=== PATIENT | female | born 1950 | race Caucasian/White ===

== ENCOUNTER 2016-08-17 16:47 | Observation (INO) | payer SELFPAY ==
[~2016-08-17] VITALS: Ht 157.5 cm; Wt 84.0 kg
[2016-08-17] VITALS (16 sets, daily range): BP systolic 120–181; BP diastolic 79–108; PULSE 61–102; RESP 14–18; TEMP 98.1–98.2; O2SAT 95–99
[2016-08-17] MEDS ORDERED: SODIUM CHLOR 0.9% 1000 ML INJ 1,000 ML IV ONE (16:54)
--- NOTE | 2016-08-17 17:09 | RADRPT ---
EXAM DATE/TIME: 08/17/2016 16:50 [facility] COMPARISON: CT BRAIN W/O CONTRAST, October 08, 2014, 19:15. INDICATIONS : Stroke alert. Left facial, left arm and leg numbness x 20 minutes. RADIATION DOSE: 64.11 CTDIvol (mGy) This report was called by Dr. Chicas to Dr. Mansfield at 5: 07 PM MEDICAL HISTORY : Unobtainable. SURGICAL HISTORY : Unobtainable. ENCOUNTER: Initial ACUITY: 1 day PAIN SCALE: 0/10 LOCATION: cranial TECHNIQUE: Multiple contiguous axial images were obtained of the head. Using automated exposure control and adj ustment of the mA and/or kV according to patient size, radiation dose was kept as low as reasonably a chievable to obtain optimal diagnostic quality images. DICOM format image data is available electro nically for review and comparison. FINDINGS: CEREBRUM: The ventricles are normal for age. No evidence of midline shift, mass lesion, hemorrhage or acute in farction. No extra-axial fluid collections are seen. POSTERIOR FOSSA: The cerebellum and brainstem are intact. The 4th ventricle is midline. The cerebellopontine angle i s unremarkable. EXTRACRANIAL: The visualized portion of the orbits is intact. SKULL: The calvaria is intact. No evidence of skull fracture. CONCLUSION: Normal examination for a patient of this age. No significant change has occurred. Sixto Maldonado MD on August 17, 2016 at 17:06 Board Certified Radiologist. This report was verified electronically.
--- NOTE | 2016-08-17 17:17 | PD ---
HPI Chief Complaint: Stroke Alert Time Seen by Provider: 16:54 Travel History International Travel<30 days: No Contact w/Intl Traveler<30days: No Traveled to known affect area: No History of Present Illness HPI This 65-year-old female is complaining of left-sided tingling. She says that symptoms started about half an hour ago and involved the face the arm and the leg. She says that she was outside and was quite hot when the symptoms began. She has never had symptoms like this before. She is not having headache. She has no history of stroke. Symptoms started quite abruptly. She is generally healthy. She does not take any blood thinners. She has no history of hypertension. She does not smoke. She has a history of hysterectomy [facility] Social History Tobacco Use: No Allergies-Medications (Allergen,Severity, Reaction): Coded Allergies: Cephalosporins (Verified Allergy, Unknown, 08/17/16) Reported Meds & Prescriptions Reported Meds & Active Scripts Active No Active Prescriptions or Reported Medications Review of Systems General / Constitutional: No: Fever, Chills Eyes: No: Diploplia, Blurred Vision HENT: No: Headaches, Vertigo, Lightheadedness Cardiovascular: No: Palpitations Respiratory: No: Cough, Shortness of Breath Gastrointestinal: No: Nausea, Vomiting Genitourinary: No: Urgency, Frequency Musculoskeletal: Positive: Weakness Skin: No Rash, No Itching Neurologic: Positive: Weakness Hematologic/Lymphatic: No: Easy Bruising Physical Exam Narrative GENERAL: Well-developed female SKIN: Focused skin assessment warm/dry. HEAD: Atraumatic. Normocephalic. EYES: Pupils equal and round. No scleral icterus. No injection or drainage. Extraocular movements are full. Visual tapia intact ENT: No nasal bleeding or discharge. Mucous membranes pink and moist. NECK: Trachea midline. No JVD. CARDIOVASCULAR: Regular rate and rhythm. No murmur appreciated. RESPIRATORY: No accessory muscle use. Clear to auscultation. Breath sounds equal bilaterally. GASTROINTESTINAL: Abdomen soft, non-tender, nondistended. Hepatic and splenic margins not palpable. MUSCULOSKELETAL: No obvious deformities. No clubbing. No cyanosis. No edema. NEUROLOGICAL: Awake and alert. There appears to be some mild left facial weakness. 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 Left leg she can hold up against gravity for only a few seconds. The right leg has normal strength. There is diminished sensation in the left arm and the left leg. PSYCHIATRIC: Appropriate mood and affect; insight and judgment normal Data Data Last Documented VS Vital Signs Date Time Temp Pulse Resp B/P Pulse Ox O2 Delivery O2 Flow Rate FiO2 08/17/16 17:31 75 18 164/92 97 08/17/16 17:10 98.2 Room Air Orders Cath For Specimen (08/17/16 16:54) Neuro Checks Q2HX12,Q4H (08/17/16 16:54) Nursing Bedside Swallow Assess .ONCE (08/17/16 16:54) Activity Bed Rest (08/17/16 16:54) Prothrombin Time / Inr (Pt) (08/17/16 16:54) Act Partial Throm Time (Ptt) (08/17/16 16:54) Complete Blood Count With Diff (08/17/16 16:54) Basic Metabolic Panel (Bmp) (08/17/16 16:54) Fibrinogen (08/17/16 16:54) Creatine Kinase (Cpk) (08/17/16 16:54) Troponin I (08/17/16 16:54) Ua Includes Microscopic (08/17/16 16:54) Drug Screen, Random Urine (08/17/16 16:54) Type And Screen (08/17/16 16:54) Ct Brain W/O Iv Contrast(Rout) (08/17/16 ) Electrocardiogram (08/17/16 ) Beta Hcg (Quant/Titer) (08/17/16 16:54) Consult Neurology (08/17/16 16:54) Sodium Chlor 0.9% 1000 Ml Inj (Ns 1000 M (08/17/16 16:54) Blood Glucose (08/17/16 16:54) Ecg Monitoring (08/17/16 16:54) Iv Access Insert/Monitor (08/17/16 16:54) NPO (08/17/16 16:54) Oximetry (08/17/16 16:54) Oxygen Administration (08/17/16 16:54) Resp Oxygen Mina C Titrat 1-4 L (08/17/16 16:54) Aspirin (Aspirin) (08/17/16 17:30) (Hub Use Only)Inp Phy Cons/Ref (08/17/16 ) Admit Order (Ed Use Only) (08/17/16 17:40) Place In Observation (08/17/16 ) Vital Signs (Adult) Q4H (08/17/16 17:40) 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 Operator / Telemetry .CONTINUOUS (08/17/16 17:40) Diet Heart Healthy (08/17/16 Dinner) Sodium Chlor 0.9% 1000 Ml Inj (Ns 1000 M (08/17/16 17:40) Sodium Chloride 0.9% Flush (Ns Flush) (08/17/16 17:45) Sodium Chloride 0.9% Flush (Ns Flush) (08/17/16 21:00) Ondansetron Inj (Zofran Inj) (08/17/16 17:45) Basic Metabolic Panel (Bmp) (08/18/16 06:00) Complete Blood Count With Diff (08/18/16 06:00) Heparin Inj (Heparin Inj) (08/17/16 18:00) Naloxone Inj (Narcan Inj) (08/17/16 17:45) Docusate Sodium-Senna (Stephanie-Colace) (08/17/16 21:00) Magnesium Hydroxide Liq (Milk Of Magnesi (08/17/16 17:45) Sennosides (Senokot) (08/17/16 17:45) Bisacodyl Supp (Dulcolax Supp) (08/17/16 17:45) Lactulose Liq (Lactulose Liq) (08/17/16 17:45) Labs Laboratory Tests Test 08/17/16 08/17/16 08/17/16 17:08 17:18 17:43 White Blood Count 8.9 TH/MM3 Red Blood Count 4.55 MIL/MM3 Hemoglobin 13.8 GM/DL Hematocrit 40.0 % Mean Corpuscular Volume 87.9 FL Mean Corpuscular Hemoglobin 30.3 PG Mean Corpuscular Hemoglobin 34.4 % Concent Red Cell Distribution Width 12.7 % Platelet Count 264 TH/MM3 Mean Platelet Volume 8.1 FL Neutrophils (%) (Auto) 60.6 % Lymphocytes (%) (Auto) 30.2 % Monocytes (%) (Auto) 7.2 % Eosinophils (%) (Auto) 1.4 % Basophils (%) (Auto) 0.6 % Neutrophils # (Auto) 5.4 TH/MM3 Lymphocytes # (Auto) 2.7 TH/MM3 Monocytes # (Auto) 0.6 TH/MM3 Eosinophils # (Auto) 0.1 TH/MM3 Basophils # (Auto) 0.1 TH/MM3 CBC Comment DIFF FINAL Differential Comment Prothrombin Time 9.8 SEC Prothromb Time International 0.9 RATIO Ratio Activated Partial 24.3 SEC Thromboplast Time Fibrinogen 392 mg/dL Sodium Level 140 MEQ/L Potassium Level 3.6 MEQ/L Chloride Level 106 MEQ/L Carbon Dioxide Level 26.8 MEQ/L Anion Gap 7 MEQ/L Blood Urea Nitrogen 16 MG/DL Creatinine 0.83 MG/DL Estimat Glomerular Filtration 69 ML/MIN Rate Random Glucose 93 MG/DL Calcium Level 8.7 MG/DL Total Creatine Kinase 120 U/L Troponin I LESS THAN 0.02 NG/ML Human Chorionic Gonadotropin, 2 MIU/ML Quant Blood Type A POSITIVE Antibody Screen NEGATIVE Urine Color YELLOW Urine Turbidity CLEAR Urine pH 6.0 Urine Specific Dale 1.015 Urine Protein NEG mg/dL Urine Glucose (UA) NEG mg/dL Urine Ketones NEG mg/dL Urine Occult Blood NEG Urine Nitrite NEG Urine Bilirubin NEG Urine Leukocyte Esterase SMALL Urine RBC 0-3 /hpf Urine WBC 0-2 /hpf Urine Squamous Epithelial 0-5 /hpf Cells Microscopic Urinalysis Comment CATH-CULT NOT IND Urine Opiates Screen NEG Urine Barbiturates Screen NEG Urine Amphetamines Screen NEG Urine Benzodiazepines Screen NEG Urine Cocaine Screen NEG Urine Cannabinoids Screen NEG MDM Medical Decision Making Medical Screen Exam Complete: Yes Emergency Medical Condition: Yes Medical Record Reviewed: Yes Differential Diagnosis Differential includes stroke, hemorrhage, brain tumor Narrative Course Patient was declared a stroke alert on arrival and was taken for emergent CT scan of the brain. This has been read as negative. On returning from CT scanning the patient says that she feels like she is improving considerably. Her numbness is subsiding as is her weakness. On repeat examination she does have some persistent sensory deficit. Her legs appear to be equal in strength. Her left arm is just slightly weaker than the right. Patient seems to have considerable improvement. I have discussed TPA with the patient but will not be given at this time as she appears to be improving considerably. She has been given aspirin and will be admitted. She has not yet had complete resolution so this may be residual stroke versus TIA. EKG does shows normal sinus rhythm. Patient reevaluated at 5:45 PM and says that all symptoms have resolved. Case discussed with Dr. Meehan and Dr. CONLEY Diagnosis Primary Impression: TIA (transient ischemic attack) Admitting Information Admitting Physician Requests: Admit Scripts No Active Prescriptions or Reported Meds Jass Gama MD Aug 17, 2016 17:17
[2016-08-17 17:20] LABS: AUTOMATED NEUTROPHIL # 5.4 TH/MM3 (1.8-7.7); BASOPHIL # 0.1 TH/MM3 (0-0.2); BASOPHIL % 0.6 % (0.0-2.0); EOSINOPHIL # 0.1 TH/MM3 (0-0.4); EOSINOPHIL % 1.4 % (0.0-4.0); HEMO FLAGS DIFF FINAL; LYMPH % 30.2 % (9.0-44.0); LYMPHOCYTE # 2.7 TH/MM3 (1.0-4.8); MEAN CELL VOLUME 87.9 FL (80.0-100.0); MEAN CORPUSCULAR HEMOGLOBIN 30.3 PG (27.0-34.0); MEAN CORPUSCULAR HGB CONC 34.4 % (32.0-36.0); MONO % 7.2 % (0.0-8.0); NEUT % 60.6 % (16.0-70.0); PLATELET COUNT 264 TH/MM3 (150-450); RED BLOOD COUNT 4.55 MIL/MM3 (4.00-5.30); RED CELL DISTRIBUTION WIDTH 12.7 % (11.6-17.2); WHITE BLOOD COUNT 8.9 TH/MM3 (4.0-11.0)
[2016-08-17 17:28] LABS: CHLORIDE 106 MEQ/L (98-107); POTASSIUM 3.6 MEQ/L (3.5-5.1); SODIUM (NA) 140 MEQ/L (136-145)
[2016-08-17] MEDS ORDERED: ASPIRIN 325 MG TAB PO ONE (17:30)
[2016-08-17 17:31] LABS: ANION GAP 7 MEQ/L (5-15); BICARBONATE 26.8 MEQ/L (21.0-32.0); BLOOD UREA NITROGEN 16 MG/DL (7-18)
[2016-08-17 17:34] LABS: APTT (PATIENT) 24.3 SEC (24.3-30.1); INTERNATIONAL NORMALIZED RATIO 0.9 RATIO; PROTHROMBIN TIME - PATIENT 9.8 SEC (9.8-11.6)
[2016-08-17 17:35] LABS: GLOMERULAR FILTRATION RATE 69 ML/MIN (>89)
[2016-08-17 17:38] LABS: CREATINE KINASE 120 U/L (26-192)
[2016-08-17 17:39] LABS: BETA HCG QUANT 2 MIU/ML (0-5)
[2016-08-17] MEDS ORDERED: BISACODYL 10 MG SUPP RECTAL PRN (17:45)
[2016-08-17] MEDS ORDERED: SODIUM CHLORIDE 0.9% FLUSH 10 ML FLUSH IV FLUSH PRN (17:45)
[2016-08-17] MEDS ORDERED: MAGNESIUM HYDROXIDE SUSP 30 ML CUP PO PRN (17:45)
[2016-08-17] MEDS ORDERED: ONDANSETRON HCL 4 MG/2 ML VIAL IVP PRN (17:45)
[2016-08-17] MEDS ORDERED: SENNOSIDES 8.6 MG TAB PO PRN (17:45)
[2016-08-17] MEDS ORDERED: NALOXONE HCL 0.4 MG/ML AMP IV PRN (17:45)
[2016-08-17] MEDS ORDERED: LACTULOSE SYRUP 20 GM/30 ML CUP PO PRN (17:45)
[2016-08-17] MEDS: SODIUM CHLOR 0.9% 1000 ML INJ 1,000 ML IV SCH (17:54)
[2016-08-17 17:58] LABS: BLOOD, URINE NEG (NEG); GLUCOSE,URINE NEG (NEG); KETONE, URINE NEG (NEG); NITRITE,URINE NEG (NEG)
[2016-08-17 18:06] LABS: AMPHETAMINE, URINE NEG (NEG)
[2016-08-17 18:10] LABS: RBC, URINE 0-3 /hpf (0-3); SQUAMOUS EPITHELIAL CELL URINE 0-5 /hpf (0-5); URINE COLOR YELLOW (YELLW/STRAW); WBC, URINE 0-2 /hpf (0-5)
[2016-08-17 18:11] LABS: COMMENT (UR) CATH-CULT NOT IND
[2016-08-17 18:14] LABS: BARBITURATES, URINE NEG (NEG)
[2016-08-17 18:20] LABS: COCAINE, URINE NEG (NEG)
[2016-08-17] MEDS: HEPARIN SODIUM - SQ 10,000 UNITS/ML VIAL SQ SCH (18:27)
--- NOTE | 2016-08-17 20:11 | RADRPT ---
EXAM DATE/TIME: 08/17/2016 19:38 [facility] COMPARISON: CT BRAIN W/O CONTRAST, August 17, 2016, 16:50. INDICATIONS : Repeat scan per admitting doctor. Change in mental status. Patient " seeing spots" post administratio n of heparin. RADIATION DOSE: 63.69 CTDIvol (mGy) MEDICAL HISTORY : None SURGICAL HISTORY : Hysterectomy. dental implants. breast augmentation ENCOUNTER: Subsequent ACUITY: 1 day PAIN SCALE: 0/10 LOCATION: cranial TECHNIQUE: Multiple contiguous axial images were obtained of the head. Using automated exposure control and adj ustment of the mA and/or kV according to patient size, radiation dose was kept as low as reasonably a chievable to obtain optimal diagnostic quality images. DICOM format image data is available electro nically for review and comparison. FINDINGS: CEREBRUM: The ventricles are normal for age. No evidence of midline shift, mass lesion, hemorrhage or acute in farction. No extra-axial fluid collections are seen. POSTERIOR FOSSA: The cerebellum and brainstem are intact. The 4th ventricle is midline. The cerebellopontine angle i s unremarkable. EXTRACRANIAL: The visualized portion of the orbits is intact. SKULL: The calvaria is intact. No evidence of skull fracture. Sinus disease present in the left maxillary sinus. CONCLUSION: Negative for acute process. Ash Chambers MD FACR on August 17, 2016 at 20:08 Board Certified Radiologist. This report was verified electronically.
[2016-08-17] MEDS ORDERED: LORazepam 2 MG/ML VIAL IV PUSH ONE (20:30)
[2016-08-17] MEDS: DOCUSATE SODIUM 50 MG/SENNA 8.6 MG TAB PO SCH (20:40)
[2016-08-17] MEDS ORDERED: SODIUM CHLORIDE 0.9% FLUSH 10 ML FLUSH IV FLUSH SCH (21:00)
--- NOTE | 2016-08-17 21:29 | RADRPT ---
EXAM DATE/TIME: 08/17/2016 20:52 [facility] COMPARISON: No previous studies available for comparison. INDICATIONS : Stroke alert with left sided weakness and visual disturbances. MEDICAL HISTORY : None. SURGICAL HISTORY : Hysterectomy. ENCOUNTER: Initial ACUITY: 1 day PAIN SCORE: 0/10 LOCATION: cranial Please note a normal MRA of the brain does not entirely exclude the possibility of a small aneurysm, nor the possibility of distal intracranial vessel disease. TECHNIQUE: 3D time of flight MRA was performed. Source images, multiplanar STS MIP, and 3D volume MIP reconstru ctions were reviewed. FINDINGS: There is excellent visualization of the major intracranial arteries out to the second-order branch ve ssels. There is no evidence for aneurysm, vessel truncation or stenosis, and no evidence for vascula r malformation. The left vertebral is small and diminutive. CONCLUSION: Negative for significant atherosclerotic disease. Ash Chambers MD FACR on August 17, 2016 at 21:27 Board Certified Radiologist. This report was verified electronically.
--- NOTE | 2016-08-17 21:33 | RADRPT ---
EXAM DATE/TIME: 08/17/2016 20:52 [facility] COMPARISON: No previous studies available for comparison. INDICATIONS : Stroke alert with left sided weakness and visual disturbances. MEDICAL HISTORY : None. SURGICAL HISTORY : Hysterectomy. ENCOUNTER: Initial ACUITY: 1 day PAIN SCORE: 0/10 LOCATION: Cranial TECHNIQUE: Multiplanar, multisequence MRI of the brain was performed without contrast. FINDINGS: Extensive periventricular white matter changes are evident suspicious for a demyelinating process. T here is no parenchymal hemorrhage, acute infarction or mass lesion. There are no extraaxial fluid collections a ppreciated. The posteriori fossa is unremarkable. Orbits appear normal. Minimal mucoperiosteal thickening is present in the left maxillary sinus. CONCLUSION: 1. Left maxillary sinus disease. 2. Moderate periventricular white matter changes suspicious for a demyelinating process. Ash Chambers MD FACR on August 17, 2016 at 21:28 Board Certified Radiologist. This report was verified electronically.
--- NOTE | 2016-08-17 21:37 | RADRPT ---
EXAM DATE/TIME: 08/17/2016 20:52 [facility] COMPARISON: No previous studies available for comparison. INDICATIONS : Stroke alert with left sided weakness and visual disturbances. MEDICAL HISTORY : None. SURGICAL HISTORY : Hysterectomy. ENCOUNTER: Initial ACUITY: 1 day PAIN SCORE: 0/10 LOCATION: cranial Percent stenosis is calculated using the diameter of the stenotic region over the diameter of the nor mal distal internal carotid artery. TECHNIQUE: 3D time of flight MRA of the extracranial circulation was performed using a neurovascular coil. Post processing was performed including rotating subvolume maximum intensity projections of each carotid artery, rotating full-volume maximum intensity projections of both carotid arteries, sagittal and cor onal sliding thin-slab reformations of each carotid artery, and left oblique sliding thin slab reform ation through the aortic arch to include the origin of the arch branch vessels. FINDINGS: AORTIC ARCH: There is a three vessel origin of the great vessels from the aorta. No evidence of ostial narrowing. RIGHT CAROTID: The common carotid artery is intact. The carotid bulb has a normal configuration without ulceration or narrowing. The internal carotid artery lumen is smooth without stenosis. The external carotid ar robinson is intact. LEFT CAROTID: The common carotid artery is intact. The carotid bulb has a normal configuration without ulceration or narrowing. The internal carotid artery lumen is smooth without stenosis. The external carotid ar robinson is intact. VERTEBRALS: The vertebral arteries have a symmetric diameter. No stenotic lesions are seen. CONCLUSION: Negative for hemodynamically significant stenosis. Ash Chambers MD FACR on August 17, 2016 at 21:35 Board Certified Radiologist. This report was verified electronically.
[2016-08-17] MEDS ORDERED: SODIUM CHLORIDE 0.9% FLUSH 5 ML FLUSH IV FLUSH PRN (22:15)
[2016-08-17] MEDS ORDERED: DEXTROSE 50% IN WATER 50 ML VIAL(D50) IV PUSH PRN (22:15)
[2016-08-17] MEDS ORDERED: GLUCAGON 1 MG/ML VIAL OTHER PRN (22:15)
--- NOTE | 2016-08-17 22:17 | MB ---
cc: GINI SUTTON DATE OF CONSULTATION 08/17/16 REASON FOR CONSULTATION Stroke alert HISTORY OF PRESENT ILLNESS Ms. Castillo is a very nice 65-year-old woman who had sudden onset of left-sided weakness and numbness about 4:30 this afternoon and presented to the ER and a stroke alert was called. Discussed her case with Dr. Gu. The patient was being evaluated for possible TPA administration and her CT scan of the brain was unremarkable. However, her symptoms showed marked improvement getting back to normal and, therefore, she was felt not to be a TPA candidate. She denies any prior neurologic history. No history of strokes in the past, never had diplopia, vertigo or other neurologic complaints. PAST MEDICAL HISTORY Unremarkable. MEDICATIONS None. ALLERGIES Cephalosporins. NEUROLOGIC EXAMINATION Blood pressure is 120/89, pulse 65, respiratory rate is 18. Higher cortical functions normal. Cranial nerves II-XII are normal. Motor exam - she has 5/5 strength of all groups in both upper and lower extremities. There is no drift. Fine motor skills are normal. Sensory is intact. Reflexes are symmetric. IMAGING STUDIES CT of the brain is within normal limits. MRI of the brain shows several areas in the white matter in the centrum semiovale, moderate periventricular white matter changes suspicious for a demyelinating process, no hemorrhage is identified. There is no evidence of acute stroke. MRA brain normal. MRA of the carotids within normal limits. LABORATORY DATA White count 8900, hemoglobin 13.8, hematocrit 40%, platelet count 264,000, PT 9.8, INR 0.9, APTT 24.3. Sodium 140, potassium 3.6, chloride 106, CO2 26.8, BUN 16, creatinine 0.83, GFR 69, troponin less than 0.02. Beta hCG 2. Tox screen negative. Urinalysis normal. IMPRESSION Probable TIA now resolved. Regarding the MRI findings, There is no evidence on history or exam to suggest multiple sclerosis. Would recommend following this, repeating an MRI of the brain in six months. For the present time, we will obtain an echocardiogram, monitor cardiac telemetry, rule out A. fib, start aspirin as well as check a lipid panel. The patient as noted above was not a candidate for IV t-PA due to the rapid resolution of her symptoms. MD SAMI Patel/ /10:06 PM /10:17 PM
[2016-08-18 00:25] VITALS: PULSE 68
[2016-08-18] MEDS: SODIUM CHLOR 0.9% 1000 ML INJ 1,000 ML IV SCH (03:40)
[2016-08-18 04:25] VITALS: BP 110/67; PULSE 65; RESP 18; TEMP 98.7; O2SAT 98
[2016-08-18] MEDS: HEPARIN SODIUM - SQ 10,000 UNITS/ML VIAL SQ SCH (06:00)
[2016-08-18] MEDS: INSULIN ASPART SUPPLEMENTAL SCALE SQ SCH ×3 (06:14→16:00)
[2016-08-18 06:35] LABS: AUTOMATED NEUTROPHIL # 4.3 TH/MM3 (1.8-7.7); BASOPHIL % 0.4 % (0.0-2.0); EOSINOPHIL # 0.2 TH/MM3 (0-0.4); EOSINOPHIL % 2.3 % (0.0-4.0); HEMATOCRIT 37.2 % (35.0-46.0); HEMO FLAGS DIFF FINAL; LYMPH % 29.9 % (9.0-44.0); LYMPHOCYTE # 2.1 TH/MM3 (1.0-4.8); MEAN CELL VOLUME 88.5 FL (80.0-100.0); MEAN CORPUSCULAR HEMOGLOBIN 29.9 PG (27.0-34.0); MEAN CORPUSCULAR HGB CONC 33.8 % (32.0-36.0); MONO % 7.9 % (0.0-8.0); NEUT % 59.5 % (16.0-70.0); PLATELET COUNT 224 TH/MM3 (150-450); RED CELL DISTRIBUTION WIDTH 12.7 % (11.6-17.2); WHITE BLOOD COUNT 7.2 TH/MM3 (4.0-11.0)
[2016-08-18 06:45] LABS: POTASSIUM 3.8 MEQ/L (3.5-5.1)
[2016-08-18 06:51] LABS: BICARBONATE 27.3 MEQ/L (21.0-32.0)
[2016-08-18 08:32] VITALS: BP 129/82; PULSE 66; RESP 15; TEMP 97.4; O2SAT 96
[2016-08-18] MEDS: DOCUSATE SODIUM 50 MG/SENNA 8.6 MG TAB PO SCH (08:57)
[2016-08-18] MEDS ORDERED: ASPIRIN 81 MG CHEW TAB CHEW SCH (09:00)
[2016-08-18] MEDS ORDERED: SODIUM CHLORIDE 0.9% FLUSH 5 ML FLUSH IV FLUSH SCH (09:00)
[2016-08-18 10:29] VITALS: O2SAT 96
[2016-08-18] MEDS ORDERED: holter (11:44)
[2016-08-18] MEDS ORDERED: ASPI81CH25 CHEW (11:45)
--- NOTE | 2016-08-18 12:09 | HHI.HP ---
HPI Service [facility] Primary Care Physician Allen Cope M.D. Admission Diagnosis CVA, POSS TIA Diagnoses: Travel History International Travel<30 Days: No Contact w/Intl Traveler <30 Da: No Traveled to Known Affected Are: No History of Present Illness This is a pleasant 65-year-old female who had an episode of numbness in her left upper lip but progressed into a numbness of face subsequently numbness of the left upper extremity and then left lower extremity. This happened at rest. The progression time took 3-4 minutes. She came to the emergency department at [facility] within 20 minutes. The whole thing resolved itself and one hour. She is right handed. Denies any trouble with her gait. She denied any trouble with her vision. No double vision. CT scan of the brain was negative. She had some subcutaneous heparin in the emergency department, subsequently she stated that she saw stars. Blood pressure also increased. Repeat CT scan was again negative. Subsequently she had an MRI of the brain showing questionable demyelinating process. The patient denies any history of multiple sclerosis. She denies any history of diabetes however she has a strong family history of diabetes. She was seen by the undersigned in room 8320 in the presence of her friend. She does not know oriented and would like to go home. She has already been seen by neurologist Dr. Meehan Review of Systems Other 10 systems reviewed and negative except for the above Past Family Social History Past Surgical History Hysterectomy Breast augmentation Allergies: Coded Allergies: Cephalosporins (Verified Allergy, Unknown, 08/17/16) Family History 1 brother had CABG, 1 sister had stroke, her mother at age of 62 of complications of diabetes, her father at the age of 82 of complications of some medications. Social History Current smoking, no excessive alcohol, no illicit drug use Physical Exam Vital Signs Vital Signs Date Time Temp Pulse Resp B/P Pulse Ox O2 Delivery O2 Flow Rate FiO2 08/18/16 10:29 96 21 08/18/16 08:32 97.4 66 15 129/82 96 08/18/16 04:25 98.7 65 18 110/67 98 08/18/16 00:25 68 08/17/16 23:42 95 21 08/17/16 23:39 66 08/17/16 23:13 65 18 98 08/17/16 23:05 98.1 66 16 121/79 96 7/7/17 22:30 64 18 125/80 98 Room Air 08/17/16 21:36 65 18 120/89 98 Room Air 08/17/16 20:20 64 18 144/87 98 Room Air 08/17/16 19:31 72 98 Room Air 08/17/16 19:27 72 18 159/96 98 Room Air 08/17/16 18:47 77 18 181/101 98 08/17/16 18:44 78 18 167/103 98 Room Air 08/17/16 18:29 61 18 159/94 98 Room Air 08/17/16 17:56 69 18 146/92 97 Room Air 08/17/16 17:31 75 18 164/92 97 08/17/16 17:10 98.2 73 18 170/83 95 Room Air 08/17/16 17:05 99 Room Air 08/17/16 17:05 99 Room Air 08/17/16 17:00 102 16 142/108 Physical Exam GENERAL: This is a pleasant , well-developed patient, in no apparent distress. SKIN: No rashes, ecchymoses or lesions. Cool and dry. HEAD: Atraumatic. Normocephalic. No temporal or scalp tenderness. EYES: Pupils equal round and reactive. Extraocular motions intact. No scleral icterus. No injection or drainage. ENT: Nose without bleeding, purulent drainage or septal hematoma. Throat without erythema, tonsillar hypertrophy or exudate. Uvula midline. Airway patent. NECK: Trachea midline. No JVD or lymphadenopathy. Supple, nontender, no meningeal signs. CARDIOVASCULAR: Regular rate and rhythm without murmurs, gallops, or rubs. RESPIRATORY: Clear to auscultation. Breath sounds equal bilaterally. No wheezes , rales, or rhonchi. GASTROINTESTINAL: Abdomen soft, non-tender, nondistended. No hepato-splenomegaly , or palpable masses. No guarding. MUSCULOSKELETAL: Extremities without clubbing, cyanosis, or edema. No joint tenderness, effusion, or edema noted. No calf tenderness. Negative Homans sign bilaterally. NEUROLOGICAL: Awake and alert. Cranial nerves II through XII intact. Normal speech. Laboratory Laboratory Tests Test 08/17/16 08/17/16 08/17/16 08/18/16 17:08 17:18 17:43 06:08 White Blood Count 8.9 7.2 Red Blood Count 4.55 4.20 Hemoglobin 13.8 12.6 Hematocrit 40.0 37.2 Mean Corpuscular Volume 87.9 88.5 Mean Corpuscular Hemoglobin 30.3 29.9 Mean Corpuscular Hemoglobin 34.4 33.8 Concent Red Cell Distribution Width 12.7 12.7 Platelet Count 264 224 Mean Platelet Volume 8.1 8.4 Neutrophils (%) (Auto) 60.6 59.5 Lymphocytes (%) (Auto) 30.2 29.9 Monocytes (%) (Auto) 7.2 7.9 Eosinophils (%) (Auto) 1.4 2.3 Basophils (%) (Auto) 0.6 0.4 Neutrophils # (Auto) 5.4 4.3 Lymphocytes # (Auto) 2.7 2.1 Monocytes # (Auto) 0.6 0.6 Eosinophils # (Auto) 0.1 0.2 Basophils # (Auto) 0.1 0.0 CBC Comment DIFF FINAL DIFF FINAL Differential Comment Prothrombin Time 9.8 Prothromb Time International 0.9 Ratio Activated Partial 24.3 Thromboplast Time Fibrinogen 392 Sodium Level 140 144 Potassium Level 3.6 3.8 Chloride Level 106 109 Carbon Dioxide Level 26.8 27.3 Anion Gap 7 8 Blood Urea Nitrogen 16 14 Creatinine 0.83 0.72 Estimat Glomerular Filtration 69 82 Rate Random Glucose 93 95 Calcium Level 8.7 8.4 Total Creatine Kinase 120 Troponin I LESS THAN 0.02 Human Chorionic Gonadotropin, 2 Quant Blood Type A POSITIVE Antibody Screen NEGATIVE Urine Color YELLOW Urine Turbidity CLEAR Urine pH 6.0 Urine Specific [place] 1.015 Urine Protein NEG Urine Glucose (UA) NEG Urine Ketones NEG Urine Occult Blood NEG Urine Nitrite NEG Urine Bilirubin NEG Urine Leukocyte Esterase SMALL Urine RBC 0-3 Urine WBC 0-2 Urine Squamous Epithelial 0-5 Cells Microscopic Urinalysis Comment CATH-CULT NOT IND Urine Opiates Screen NEG Urine Barbiturates Screen NEG Urine Amphetamines Screen NEG Urine Benzodiazepines Screen NEG Urine Cocaine Screen NEG Urine Cannabinoids Screen NEG Result Diagram: 08/18/16 0608 08/18/16 0608 Imaging Last 24 hours Impressions Neck Magnetic Resonance Angiography 08/17/16 1901 Signed Impressions: Service Date/Time: Wednesday, August 17, 2016 20:52 - CONCLUSION: Negative for hemodynamically significant stenosis. Ash Chambers MD FACR Head Magnetic Resonance Angiography 08/17/16 1901 Signed Impressions: Service Date/Time: Wednesday, August 17, 2016 20:52 - CONCLUSION: Negative for significant atherosclerotic disease. Ash Chambers MD FACR Assessment and Plan Assessment and Plan Assessment Episode of numbness that started in the left upper lip progressing into the left face and left upper extremity and then left lower extremity Etiology unclear Labile hypertension Possible TIA Otherwise workup negative Management The patient is waiting for her echocardiogram. Lipid profile results is also pending. She is to start on baby aspirin once a day. She might need a statin if her lipids are elevated She could go home after the echocardiogram Follow-up with Dr. Meehan in 1-2 weeks to go over the results of her echo and plan for further management She is to have 3 weeks of event monitoring/outpatient telemetry to rule out arrhythmia She is to have repeat of her MRI of the brain except months to determine if she indeed has any demyelinating process Discussed with patient Discussed with nurse 45 minutes Discussed With: Gary Jane MD Aug 18, 2016 12:09
[2016-08-18 12:55] VITALS: BP 131/75; PULSE 63; RESP 14; TEMP 96.3; O2SAT 97
[2016-08-18 13:16] LABS: HDL CHOLESTEROL 41.2 MG/DL (40.0-60.0)
[2016-08-18] MEDS ORDERED: LIPI10TA PO (16:18)
[2016-08-18 16:23] VITALS: BP 136/67; PULSE 64; RESP 18; TEMP 97
--- NOTE | 2016-08-18 16:33 | EKG ---
Date Performed: 08/17/2016 Time Performed: 17:12:04 PTAGE: 65 years EKG: Sinus rhythm NORMAL ECG NO PREVIOUS TRACING DOCTOR: Winston Dan Interpretating Date/Time 08/18/2016 16:31:34
--- NOTE | 2016-08-19 09:24 | ECHRPT ---
Indication: CVA/TIA CONCLUSIONS Normal left ventricular size and wall thickness. The left ventricular systolic function is normal wi th an estimated ejection fraction in the range of 60-65%. Left ventricular diastolic function parameters a re normal. Mild mitral valve regurgitation. There is mild tricuspid valve regurgitation. The estimated pulmonary arterial pressure is 28 mmHg. BP: / HR: 60 Rhythm: Sinus MEASUREMENTS (Male / Female) Normal Values Technical Quality:Fair 2D ECHO LV Diastolic Diameter PLAX 4.5 cm 4.2 - 5.9 / 3.9 - 5.3 cm LV Systolic Diameter PLAX 3.3 cm IVS Diastolic Thickness 1.0 cm 0.6 - 1.0 / 0.6 - 0.9 cm LVPW Diastolic Thickness 1.1 cm 0.6 - 1.0 / 0.6 - 0.9 cm LV Relative Wall Thickness 0.5 LVOT Diameter 2.0 cm M-MODE Aortic Root Diameter MM 2.4 cm LA Systolic Diameter MM 3.7 cm LA Ao Ratio MM 1.5 AV Cusp Separation MM 2.1 cm DOPPLER AV Peak Velocity 153.0 cm/s AV Peak Gradient 9.4 mmHg LVOT Peak Velocity 108.0 cm/s LVOT Peak Gradient 4.7 mmHg AV Area Cont Eq pk 2.2 cm MR Peak Velocity 246.5 cm/s MR Peak Gradient 24.3 mmHg Mitral E Point Velocity 80.9 cm/s Mitral A Point Velocity 55.3 cm/s Mitral E to A Ratio 1.5 LV E' Lateral Velocity 9.9 cm/s Mitral E to LV E' Lateral Ratio 8.1 LV E' Septal Velocity 10.4 cm/s Mitral E to LV E' Septal Ratio 7.8 TR Peak Velocity 210.0 cm/s TR Peak Gradient 17.6 mmHg PV Peak Velocity 80.1 cm/s PV Peak Gradient 2.6 mmHg FINDINGS LEFT VENTRICLE Normal left ventricular size and wall thickness. The left ventricular systolic function is normal wi th an estimated ejection fraction in the range of 60-65%. Left ventricular diastolic function parameters a re normal. RIGHT VENTRICLE Normal right ventricular size and systolic function. LEFT ATRIUM The left atrial size is normal. RIGHT ATRIUM The right atrial size is normal. ATRIAL SEPTUM Normal atrial septal thickness without atrial level shunting by limited color doppler interrogation. AORTA The aortic root and proximal ascending aorta are normal in size on limited imaging. MITRAL VALVE Mild mitral valve regurgitation. AORTIC VALVE Trileaflet aortic valve. No aortic valve stenosis or regurgitation. TRICUSPID VALVE There is mild tricuspid valve regurgitation. The estimated pulmonary arterial pressure is 28 mmHg. PULMONARY VALVE The pulmonary valve is not well visualized. VESSELS The inferior vena cava is normal in size. PERICARDIUM No pericardial effusion. Calin Loja MD (Electronically Signed) Final Date:19 August 2016 09:23
[2016-08-19 10:50] LABS: HEMOGLOBIN A1a 0.9 %; HEMOGLOBIN A1b 1.6 %; HEMOGLOBIN LA1C 1.8 %; HEMOGLOBIN P3 3.7 %
== END 2016-08-18 17:31 | disposition home or self-care (01) ==
LOC: PHED 16:47 → PHEDA 17:43 → PH3A 23:04
PROVIDERS: ADMIT Family Medicine; ATTEND Family Medicine
DX: R20.0 Anesthesia of skin (principal); R09.89 Other specified symptoms and signs involving the circulatory and respiratory systems; R29.810 Facial weakness; R41.82 Altered mental status, unspecified; H53.9 Unspecified visual disturbance; G45.9 Transient cerebral ischemic attack, unspecified; R53.1 Weakness; R90.82 White matter disease, unspecified; F17.200 Nicotine dependence, unspecified, uncomplicated; Z83.3 Family history of diabetes mellitus
CPT/HCPCS: 70450; 70544; 70547; 70551; 80048; 80061; 80307; 81001; 82550; 82948; 83036; 84484; 84702; 85025; 85384; 85610; 85730; 86850; 86900; 86901; 93005; 93306; 99285; G0378; J1644; J2060; J7030